=== PATIENT | female | born 1975 | race Caucasian/White ===

== ENCOUNTER → 2021-08-12 | Day surgery (SDC) | payer BC ==
--- NOTE | 2021-08-12 14:34 | RAD REPORT ---
EXAM DESCRIPTION: US - Guided FNA Non Breast - 08/12/2021 10:08 am CLINICAL HISTORY: E04.1 COMPARISON: No comparisons FINDINGS: Preoperative diagnosis: Left thyroid nodule. Post operative diagnosis: Same. Conscious Sedation: None Fluoroscopy time: None Contrast used: None Estimated blood loss: Minimal Specimens:3 fine-needle aspirates were obtained The neck was prepped and draped in the usual sterile fashion. 1% lidocaine was infiltrated into the s ubcutaneous tissues for local anesthesia. Real time ultrasound scanning of the neck demonstrated the left thyroid nodule. 3 x 25 gauge fine needle aspirates were obtained. IMPRESSION: Technically successful ultrasound-guided fine aspiration of an indeterminate left thyroi d nodule.
== END ==
LOC: FNA 10:00
PROVIDERS: ATTEND Otolaryngology
PROC: 0GJK3ZZ Inspection of Thyroid Gland, Percutaneous Approach (ICD-10-PCS; principal; 2021-08-12)
DX: E04.1 Nontoxic single thyroid nodule (principal)
CPT/HCPCS: 88162